=== PATIENT | male | born 1995 | race Caucasian/White ===

== ENCOUNTER 2019-01-22 17:41 | Emergency (ER) | payer MEDICAID ==
[~2019-01-22] VITALS: Ht 182.9 cm; Wt 106.0 kg
[2019-01-22 17:44] VITALS: Ht 182.9 cm; Wt 106.0 kg
[2019-01-22] MEDS ORDERED: KETOROLAC 60 MG INJ IM STA (18:47)
[2019-01-22] MEDS ORDERED: ACETAMINOPHEN 500 MG TAB PO STA (18:47)
[2019-01-22] MEDS ORDERED: traMADol 50 MG TAB PO ONE (19:00)
[2019-01-22] MEDS ORDERED: DIAZEPAM 5 MG TAB PO ONE (19:00)
[2019-01-22] MEDS ORDERED: CYCL10TA7 PO (20:15)
[2019-01-22] MEDS ORDERED: NAPR-688 PO (20:15)
[2019-01-22] MEDS ORDERED: TRAM50TA2 PO (20:15)
[2019-01-22 20:29] VITALS: BP 125/74; PULSE 70; RESP 16
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
== END 2019-01-22 20:29 | disposition home or self-care (01) ==
LOC: FTE 17:41
DX: S29.012A Strain of muscle and tendon of back wall of thorax, initial encounter (principal); S80.02XA Contusion of left knee, initial encounter; S29.001A Unspecified injury of muscle and tendon of front wall of thorax, initial encounter; V49.49XA Driver injured in collision with other motor vehicles in traffic accident, initial encounter
CPT/HCPCS: 96372; J1885; Z7502; Z7610